=== PATIENT | female | born 1965 | race African-American/Black ===

== ENCOUNTER 2016-09-22 09:34 | Inpatient (IN) | payer BC ==
[~2016-09-22] VITALS: Ht 162.6 cm; Wt 123.0 kg
[~2016-09-22 09:34] MED LIST: LEVAQUIN750 MG PO; PREDNISONE20 MG PO
[2016-09-22 10:24] LABS: BASO % 0.4 % (0.0-2.0); EOS % 0.1 % (0-4.0); GRAN # 5.3 (1.4-6.5); GRAN % 65.8 % (42.2-75.2); HEMATOCRIT 37.4 % (37.0-47.0); HEMOGLOBIN 12.9 g/dl (12.5-16.0); LYMPH # 2.1 (1.2-3.4); LYMPH % 26.2 % (20.0-51.0); MEAN CELL VOLUME 90 fl (80.0-100.0); MEAN CORPUSCULAR HEMOGLOBIN 31 pg (27.0-31.0); MEAN CORPUSCULAR HGB CONC 35 g/dl (33.0-37.0); MEAN PLATELET VOLUME 12.8 fl (7.4-10.4); MONO # 0.6 (0.1-0.6); MONO % 6.9 % (1.7-9.3); PLATELET COUNT 140 K/mm3 (130-400); RED BLOOD COUNT 4.17 M/mm3 (4.10-5.30); REDCELL DISTRIBUTION WIDTH-CV 18.3 % (11.5-14.5); WHITE BLOOD COUNT 8.1 K/mm3 (4.8-10.8)
[2016-09-22 10:44] LABS: ADJUSTED CALCIUM 9.7 mg/dL (8.4-10.2); ALBUMIN 3.2 gm/dL (3.5-5.0); BILIRUBIN,TOTAL 3.8 mg/dL (0.0-1.0); CALCIUM 9.1 mg/dL (8.4-10.2); CREATININE, serum 0.87 mg/dL (0.52-1.25); TOTAL PROTEIN 6.5 gm/dL (6.4-8.2)
[2016-09-22] MEDS ORDERED: PROAIR HFA0.09 MG/AC IH (10:56)
[2016-09-22] MEDS ORDERED: SINGULAIR 110 MG/TAB PO (10:56)
[2016-09-22] MEDS ORDERED: LASIX 20MG TABL20 MG PO (10:57)
[2016-09-22] MEDS ORDERED: ZYRTEC 10MG10 MG PO (10:57)
[2016-09-22] MEDS ORDERED: SPIRIVA RE2.5 MCG/Ac IH (10:58)
[2016-09-22 11:03] LABS: TROPONIN-I 0.037 ng/mL (0.000-0.034)
[2016-09-22 12:43] VITALS: BP 133/82; PULSE 120; TEMP 98.1
[2016-09-22 14:47] VITALS: BP 124/89; PULSE 121; TEMP 97.5
[2016-09-22 15:55] LABS: INR 1.7 (0.8-3.0); PROTHROMBIN TIME 19.5 SECONDS (9.7-12.8)
[2016-09-22 16:03] LABS: MAGNESIUM 1.6 mg/dL (1.6-2.3); PHOSPHOROUS 4.2 mg/dL (2.5-4.5)
[2016-09-22 16:34] LABS: THYROID STIMULATING HORMONE 1.13 uIU/mL (0.465-4.680)
[2016-09-22 19:47] VITALS: BP 119/88; PULSE 112; TEMP 97.7
[2016-09-22 23:50] VITALS: BP 125/88; PULSE 110; TEMP 98.5
[2016-09-23] VITALS (1037 sets, daily range): BP systolic 114–145; BP diastolic 74–102; PULSE 97–123; TEMP 98.3–98.7; O2SAT 87–99
[2016-09-23 06:11] LABS: C-REACTIVE PROTEIN 8.5 mg/dL (0.0-0.9)
[2016-09-23 06:28] LABS: TROPONIN-I 0.043 ng/mL (0.000-0.034)
[2016-09-23 10:14] LABS: ADJUSTED CALCIUM 9.9 mg/dL (8.4-10.2); ALBUMIN 3.2 gm/dL (3.5-5.0); BILIRUBIN,DIRECT 2.1 mg/dL (0.0-0.4); BILIRUBIN,TOTAL 3.6 mg/dL (0.0-1.0); CALCIUM 9.3 mg/dL (8.4-10.2); CREATININE, serum 0.8 mg/dL (0.52-1.25); POTASSIUM 3.2 mmol/L (3.4-5.0); TOTAL PROTEIN 6.5 gm/dL (6.4-8.2)
[2016-09-24] VITALS (744 sets, daily range): BP systolic 110–129; BP diastolic 77–92; PULSE 90–113; TEMP 98–100; O2SAT 83–99
[2016-09-24 06:16] LABS: INR 1.6 (0.8-3.0); PROTHROMBIN TIME 17.5 SECONDS (9.7-12.8)
[2016-09-24 06:46] LABS: ALBUMIN 2.5 gm/dL (3.5-5.0); BILIRUBIN,DIRECT 1.4 mg/dL (0.0-0.4); BILIRUBIN,TOTAL 2.6 mg/dL (0.0-1.0); CALCIUM 8.4 mg/dL (8.4-10.2); CREATININE, serum 0.69 mg/dL (0.52-1.25); POTASSIUM 3.4 mmol/L (3.4-5.0); TOTAL PROTEIN 5.4 gm/dL (6.4-8.2)
[2016-09-24 12:04] LABS: ALBUMIN FRACTION 2.9 g/dL (2.6-4.5); ALBUMIN PERCENTAGE 50.6 % (48.7-61.8); ALPHA 1 FRACTION 0.5 g/dL (0.3-0.5); ALPHA 1 PERCENTAGE 8.7 % (3.4-8.3); ALPHA 2 FRACTION 0.7 g/dL (0.6-1.2); ALPHA 2 PERCENTAGE 11.5 % (8.4-17.5); BETA 1 FRACTION 0.4 g/dL (0.4-0.6); BETA 1 PERCENTAGE 6.8 % (5.4-8.9); BETA 2 FRACTION 0.3 g/dL (0.2-0.5); BETA 2 PERCENTAGE 5.6 % (3.8-7.7); GAMMA PERCENTAGE 16.8 % (8.1-23.0); SERUM PROTEIN TOTAL 5.8 g/dL (6.1-7.7)
[2016-09-25 03:33] VITALS: BP 112/73; PULSE 120; TEMP 99.9
[2016-09-25 07:55] VITALS: BP 130/77; PULSE 103; TEMP 99
[2016-09-25 08:06] LABS: CALCIUM 8.1 mg/dL (8.4-10.2); CREATININE, serum 0.69 mg/dL (0.52-1.25); POTASSIUM 3.8 mmol/L (3.4-5.0)
[2016-09-25 11:16] VITALS: BP 118/74; PULSE 108; TEMP 98
[2016-09-25 14:39] LABS: LUPUS ANTICOAGULANT PTT 31 sec (26 - 36)
[2016-09-25 14:44] LABS: LUPUS ANTICOAGULANT INR 1.6 (()); LUPUS ANTICOAGULANT PT 17.3 sec (())
[2016-09-25 15:29] VITALS: BP 118/80; PULSE 115; TEMP 98.3
[2016-09-25 20:13] VITALS: BP 127/76; PULSE 107; TEMP 98.4
[2016-09-25 23:31] VITALS: BP 130/96; PULSE 97; TEMP 98.9
[2016-09-26] VITALS (18 sets, daily range): BP systolic 121–153; BP diastolic 81–121; PULSE 95–126; TEMP 99.1
[2016-09-26 07:33] LABS: HEMOGLOBIN 12.5 g/dl (12.5-16.0); MEAN CELL VOLUME 90 fl (80.0-100.0); MEAN CORPUSCULAR HEMOGLOBIN 31 pg (27.0-31.0); MEAN CORPUSCULAR HGB CONC 34 g/dl (33.0-37.0); MEAN PLATELET VOLUME 11.8 fl (7.4-10.4); PLATELET COUNT 164 K/mm3 (130-400); RED BLOOD COUNT 4.06 M/mm3 (4.10-5.30); REDCELL DISTRIBUTION WIDTH-CV 17.2 % (11.5-14.5); WHITE BLOOD COUNT 7.1 K/mm3 (4.8-10.8)
[2016-09-26 07:37] LABS: HEMATOCRIT 36.4 % (37.0-47.0)
[2016-09-26 07:49] LABS: INR 1.2 (0.8-3.0); PROTHROMBIN TIME 13.6 SECONDS (9.7-12.8)
[2016-09-26 10:28] LABS: ADJUSTED CALCIUM 9.5 mg/dL (8.4-10.2); ALBUMIN 2.5 gm/dL (3.5-5.0); BILIRUBIN,TOTAL 2.9 mg/dL (0.0-1.0); CALCIUM 8.3 mg/dL (8.4-10.2); CREATININE, serum 0.68 mg/dL (0.52-1.25); POTASSIUM 3.9 mmol/L (3.4-5.0); TOTAL PROTEIN 5.5 gm/dL (6.4-8.2)
[2016-09-26] MEDS ORDERED: INCRUSE EL62.5 MCG/A IH (12:14)
[2016-09-26] MEDS ORDERED: LANOXIN 0.25M0.25 MG PO (12:14)
[2016-09-26] MEDS ORDERED: NITROSTAT0.4 MG/TAB SL (12:14)
[2016-09-26] MEDS ORDERED: CAPOTEN 12.512.5 MG PO (12:14)
[2016-09-26] MEDS ORDERED: ALDACTONE50 MG PO (12:14)
[2016-09-26] MEDS ORDERED: LASIX 40MG TABL40 MG PO (12:30)
[2016-09-28 19:11] LABS: C-ANCA 8 U/mL (0-99); P-ANCA 23 U/mL (0-99)
== END 2016-09-26 18:38 | disposition home or self-care (01) | DRG 287 ==
LOC: COL.ER 09:34 → PEDS 11:21 → IMCU 11:21 → MEDICAL 09-24 14:10
PROVIDERS: Emergency Medicine; Family Medicine; Internal Medicine Interventional Cardiology; Physician Assistant
PROC: 4A023N6 Measurement of Cardiac Sampling and Pressure, Right Heart, Percutaneous Approach (ICD-10-PCS; principal; 2016-09-26)
PROC: B2111ZZ Fluoroscopy of Multiple Coronary Arteries using Low Osmolar Contrast (ICD-10-PCS; 2016-09-26)
PROC: B2151ZZ Fluoroscopy of Left Heart using Low Osmolar Contrast (ICD-10-PCS; 2016-09-26)
DX: I50.21 Acute systolic (congestive) heart failure (principal); I42.0 Dilated cardiomyopathy; E87.1 Hypo-osmolality and hyponatremia; J45.909 Unspecified asthma, uncomplicated; K76.1 Chronic passive congestion of liver; I27.2 Other secondary pulmonary hypertension
CPT/HCPCS: 99223-AI; 99232-AI; 99233-AI; 99239; A4315; C1760; G9654; J1265; J1650; J1940; J2250; J3010; J7060; Q9967

== ENCOUNTER → 2017-11-20 | Outpatient (CLI) | payer BC ==
[~2017-11-20] MED LIST changes: +ALDACTONE50 MG PO; +CAPOTEN 12.512.5 MG PO; +INCRUSE EL62.5 MCG/A IH; +LANOXIN 0.25M0.25 MG PO; +LASIX 20MG TABL20 MG PO; +LASIX 40MG TABL40 MG PO; +NITROSTAT0.4 MG/TAB SL; +PROAIR HFA0.09 MG/AC IH; +SINGULAIR 110 MG/TAB PO; +SPIRIVA RE2.5 MCG/Ac IH; +ZYRTEC 10MG10 MG PO
== END ==
LOC: COL.RAD 07:52
DX: R10.11 Right upper quadrant pain (principal)

== ENCOUNTER → 2017-12-11 | Outpatient (CLI) | payer BC | LOC: COL.RAD 11:35 | DX: R10.11 Right upper quadrant pain (principal) | CPT/HCPCS: A9537 ==

== ENCOUNTER → 2018-09-03 | Outpatient (CLI) | payer BC | LOC: MC.RAD 13:26 | DX: Z12.31 Encounter for screening mammogram for malignant neoplasm of breast (principal); N64.89 Other specified disorders of breast ==

== ENCOUNTER → 2018-09-08 | Outpatient (CLI) | payer BC | LOC: MC.RAD 07:14 | DX: R92.2 Inconclusive mammogram (principal) | CPT/HCPCS: G0279 ==

== ENCOUNTER 2018-10-04 16:28 | Outpatient (CLI) | payer BC ==
[~2018-10-04] VITALS: Ht 165.1 cm; Wt 95.2 kg
[2018-10-04 16:57] VITALS: BP 99/64; PULSE 113; TEMP 98.5
[2018-10-04 17:30] VITALS: BP 102/56; PULSE 97
[2018-10-04 17:45] VITALS: BP 101/55; PULSE 105
[2018-10-04 18:23] LABS: BASO % 0.2 % (0.0-2.0); EOS % 0.2 % (0-4.0); GRAN # 6.7 (1.4-6.5); GRAN % 71.6 % (42.2-75.2); HEMATOCRIT 37.2 % (37.0-47.0); HEMOGLOBIN 12.5 g/dl (12.5-16.0); LYMPH # 1.9 (1.2-3.4); LYMPH % 19.7 % (20.0-51.0); MEAN CELL VOLUME 91 fl (80.0-100.0); MEAN CORPUSCULAR HEMOGLOBIN 31 pg (27.0-31.0); MEAN CORPUSCULAR HGB CONC 34 g/dl (33.0-37.0); MEAN PLATELET VOLUME 11.7 fl (7.4-10.4); MONO # 0.7 (0.1-0.6); MONO % 7.9 % (1.7-9.3); PLATELET COUNT 205 K/mm3 (130-400); RED BLOOD COUNT 4.08 M/mm3 (4.10-5.30); REDCELL DISTRIBUTION WIDTH-CV 12.7 % (11.5-14.5)
[2018-10-04 18:33] LABS: ALBUMIN 4.7 gm/dL (3.5-5.0); BILIRUBIN,TOTAL 0.6 mg/dL (0.0-1.0); CALCIUM 9.7 mg/dL (8.4-10.2); CREATININE, serum 1.26 mg/dL (0.52-1.25); POTASSIUM 4.6 mmol/L (3.4-5.0); TOTAL PROTEIN 8.3 gm/dL (6.4-8.2)
[2018-10-04 20:00] VITALS: BP 102/56; PULSE 99
[2018-10-04] MEDS ORDERED: STIOLTO RESPIMAT4 GM IH (20:04)
[2018-10-04] MEDS ORDERED: ZESTRIL 5MG5 MG PO (20:05)
[2018-10-04] MEDS ORDERED: ZAROXOLYN 2.52.5 MG PO (20:06)
--- NOTE | 2018-10-04 20:10 | NUR ---
Infusion complete. Patient reports feeling better than when she presented at [facility]. Vital signs within normal limits. No concerns at this time.
== END 2018-10-04 20:32 | disposition home or self-care (01) ==
LOC: COL.LAB 16:28 → EUO 16:28
PROVIDERS: Family Medicine
DX: E86.0 Dehydration (principal); Z86.79 Personal history of other diseases of the circulatory system
CPT/HCPCS: J7042

== ENCOUNTER 2019-03-18 21:12 | Emergency (ER) | payer BC ==
[~2019-03-18] VITALS: Ht 162.6 cm; Wt 90.9 kg
[~2019-03-18 21:12] MED LIST changes: +STIOLTO RESPIMAT4 GM IH; +ZAROXOLYN 2.52.5 MG PO; +ZESTRIL 5MG5 MG PO
[2019-03-18 21:22] VITALS: BP 121/86; PULSE 99; TEMP 97.2
[2019-03-18] MEDS ORDERED: NORCO 325 MG-51 TAB PO (23:00)
[2019-03-18] MEDS ORDERED: CLEOCIN HCL300 MG PO (23:00)
== END 2019-03-18 23:31 | disposition home or self-care (01) ==
LOC: COL.ER 21:12
DX: K08.89 Other specified disorders of teeth and supporting structures (principal)

== ENCOUNTER 2019-04-26 14:12 | Inpatient (IN) | payer BC ==
[~2019-04-26] VITALS: Ht 162.6 cm; Wt 93.1 kg
[~2019-04-26 14:12] MED LIST changes: +CLEOCIN HCL300 MG PO; +NORCO 325 MG-51 TAB PO
[2019-04-27] VITALS (11 sets, daily range): BP systolic 96–109; BP diastolic 45–69; PULSE 54–65; TEMP 97.8–98.1
[2019-04-27] MEDS ORDERED: TOPROL XL 25MG25 MG PO (10:05)
--- NOTE | 2019-04-27 15:06 | NUR ---
SW attempted to meet with the patient, patient was in surgery. SW will attempt at a later time.
--- NOTE | 2019-04-27 15:15 | NUR ---
social media community manager in to visit with chiquita
--- NOTE | 2019-04-27 15:30 | NUR ---
full assessment completed, see interventions for further info
--- NOTE | 2019-04-27 15:45 | NUR ---
is now c/o pain to left knee, medicated with roxicodone 5mg po,
--- NOTE | 2019-04-27 16:30 | NUR ---
visiting with family, instructed on ordering something to eat and verbalizes understanding
--- NOTE | 2019-04-27 16:55 | NUR ---
sitting up in bed eating and watching video on phone of a knee replacement
--- NOTE | 2019-04-27 17:00 | NUR ---
nurse was called to room and patient resting with eyes closed, no grimacing or moaning, states pain is 10/10, medicated with second tablet of roxicodone 5mg
--- NOTE | 2019-04-27 17:42 | NUR ---
is resting quietly with eyes closed when entered the room, after she arouses she has some moaning and moving around in bed
--- NOTE | 2019-04-27 18:30 | NUR ---
continues to c/o pain, medicated with morphine 2mg slow IV
--- NOTE | 2019-04-27 18:45 | NUR ---
bedside shift report given to MARIA FERNANDA Flores
[2019-04-28] VITALS (7 sets, daily range): BP systolic 90–114; BP diastolic 47–73; PULSE 60–76; TEMP 97.5–98.3
--- NOTE | 2019-04-28 02:52 | NUR ---
PATIENT HAS HAD A ROUGH NIGHT. AT SHIFT CHANGE PATIENT STATED SHE NEEDED TO USE THE RESTROOM. WAS AMBULATED TO RESTROOM WITH X2 ASSIST WITH DIFFICULTY. PATIENT STARTED TO HAVE SEVERE PAIN AND WAS IN TEARS. GIVEN PO NORCO AND IV MORPHINE. STATED SHE WAS HAVING SOME NAUSEA, IV ZOFRAN GIVEN. PAIN IS CONTROLLED WITH ALTERNATING MORPHINE AND NORCO THROUGHOUT NIGHT. PATIENT HAS HAD SOME SNACKS AND CRANBERRY JUICE. TOLERATING PO. BULKY DRESSING AND VINEET WRAP TO L KNEE ARE CD&I. WILL CONTINUE TO MONITOR. NO FURTHER NEEDS AT THIS TIME.
--- NOTE | 2019-04-28 04:18 | NUR ---
Sitting up in bed. Requests Zofran for nausea. Administered Zofran as ordered. Patient denies further needs at this time.
--- NOTE | 2019-04-28 09:36 | NUR ---
(04/27) KYLER met with the patient and the patient's family to discuss a discharge plan. The patient lives in [place] with her Dolores. The patient has a walker and a cane and reports independence with ADLs. The patient's PCP is Dr. Hall and receives medications from [facility] in with no difficulties. The patient does not have advanced directives in the EMR and was not interested in obtaining a DPOA-HC form. The patient plans to return home with outpatient physical therapy at [facility] in . The family will provide transportation. There are no additional needs at this time.
--- NOTE | 2019-04-28 10:02 | NUR ---
Initial visit; Patient thanked Drive Tester for looking in on her and keeping her in Drive Tester's prayers.
--- NOTE | 2019-04-29 01:59 | NUR ---
Patient has been resting well this shift. Pain controlled this shift with current regimen. Transfers with stand-by assist. Some drainage noted to jake. at bedside. Denies any further needs.
[2019-04-29 04:00] VITALS: BP 89/51; BP 90/51; PULSE 93; TEMP 98.2
[2019-04-29] MEDS ORDERED: XARELTO10 MG PO (06:33)
[2019-04-29] MEDS ORDERED: NORCO 325 MG-7.1 TAB PO (06:34)
[2019-04-29] MEDS ORDERED: ROXICODONE 55 MG/TAB PO (06:36)
[2019-04-29 07:50] VITALS: BP 98/48; PULSE 95; TEMP 99.2
--- NOTE | 2019-04-29 07:50 | NUR ---
resting in bed and has ordered breakfast, states pain to left knee was relieved by pain med, full assessment completed, see interventions for further info, Dr Thayer was in to see patient
--- NOTE | 2019-04-29 09:05 | NUR ---
ambulated out to [place] with physical therapy for group exercises
--- NOTE | 2019-04-29 09:44 | NUR ---
ambulated back to room after therapy
--- NOTE | 2019-04-29 10:10 | NUR ---
c/o pain 03/05 after therapy, medicated with roxicodone 10mg po
--- NOTE | 2019-04-29 10:57 | NUR ---
occupational therapy in and assisted her with taking a shower, aquacel dressing with mod amoutn drainage, removed and new aquacel placed
--- NOTE | 2019-04-29 12:20 | NUR ---
up and about in room independently,
--- NOTE | 2019-04-29 12:56 | NUR ---
ambulated out to [place] with physical therapy for group exercises
[2019-04-29 13:18] VITALS: BP 106/53; PULSE 105; TEMP 99.2
--- NOTE | 2019-04-29 14:00 | NUR ---
discharge instructions given to patient and her , verbalizes understanding
--- NOTE | 2019-04-29 14:10 | NUR ---
discharged per WC
== END 2019-04-29 14:10 | disposition home or self-care (01) | DRG 470 ==
LOC: SURG 04-27 08:04 → JCC 04-27 12:45 → SURG 04-29 14:10
PROVIDERS: ADMIT Orthopaedic Surgery
PROC: 0SRD0J9 Replacement of Left Knee Joint with Synthetic Substitute, Cemented, Open Approach (ICD-10-PCS; principal; 2019-04-27 12:45)
DX: M17.12 Unilateral primary osteoarthritis, left knee (principal); I42.9 Cardiomyopathy, unspecified; I50.22 Chronic systolic (congestive) heart failure; J45.909 Unspecified asthma, uncomplicated; I11.0 Hypertensive heart disease with heart failure; I07.1 Rheumatic tricuspid insufficiency; E11.9 Type 2 diabetes mellitus without complications; E78.00 Pure hypercholesterolemia, unspecified; Z79.84 Long term (current) use of oral hypoglycemic drugs; Z79.01 Long term (current) use of anticoagulants; Z88.0 Allergy status to penicillin; Z88.6 Allergy status to analgesic agent; Z88.1 Allergy status to other antibiotic agents
CPT/HCPCS: A9284; C1776; J1100; J2250; J2270; J2405; J2704; J2795; J7030; J7050; J7120

== ENCOUNTER → 2019-12-06 | Outpatient (CLI) | payer BC ==
[~2019-12-06] MED LIST changes: +NORCO 325 MG-7.1 TAB PO; +ROXICODONE 55 MG/TAB PO; +TOPROL XL 25MG25 MG PO; +XARELTO10 MG PO
== END ==
LOC: MC.RAD 10-25 09:15
DX: Z12.31 Encounter for screening mammogram for malignant neoplasm of breast (principal)

== ENCOUNTER → 2021-01-01 | Outpatient (CLI) | payer BC | LOC: MC.RAD 08:41 | DX: Z12.31 Encounter for screening mammogram for malignant neoplasm of breast (principal) ==

== ENCOUNTER → 2023-10-06 | Outpatient (CLI) | payer BC ==
[~2023-10-06] MED LIST changes: +ALDACTONE 25MG25 M1 PO; +FARXIGA10 PO; +LIPITOR20 MG PO; +OZEMPIC1 MG/0.71 SQ; +ULTRAM 50MG TAB50 MG PO; +VERQUVO10 MG PO; +ZYLOPRIM 100MG100 MG PO
== END ==
LOC: MC.RAD 13:40
DX: Z12.31 Encounter for screening mammogram for malignant neoplasm of breast (principal)

== ENCOUNTER 2024-04-05 11:54 | Inpatient (IN) | payer BC ==
[~2024-04-05] VITALS: Ht 162.6 cm; Wt 110.9 kg
[~2024-04-05 11:54] MED LIST changes: +LIPITOR 40MG TA40 MG PO; -LIPITOR20 MG PO; -OZEMPIC1 MG/0.71 SQ; +OZEMPIC2 MG/0.75 SQ; -VERQUVO10 MG PO; +VERQUVO2.5 MG PO
[2024-06-15] MEDS ORDERED: LR 1,000 ML IV SCH (11:00)
[2024-06-17] VITALS (13 sets, daily range): BP systolic 96–133; BP diastolic 58–84; PULSE 63–84; TEMP 97.5–98.6
--- NOTE | 2024-06-17 06:10 | NUR ---
The patient ambulated back to [place] [facility] independetly using a steady gait and appeared to tolerate the activity well. Vital signs obtained. Consent signed. 20G IV started in left hand with one stick, LR Infusing without difficulty. wavier signed. Assessment completed. Home medications reconcilled. PreOp scrub completed to right knee as ordered. Warm blankets provided. The patient's son brought her and will come pick her up for discharge. The patient denies any further needs at this time.
[2024-06-17] MEDS ORDERED: LASIX 40MG TABL40 MG PO (06:38)
[2024-06-17] MEDS ORDERED: Naloxone 0.4 MG/ML VIAL IV PRN (07:00)
[2024-06-17] MEDS ORDERED: oxyCODONE 5 MG TAB PO PRN ×2 (07:00)
[2024-06-17] MEDS ORDERED: D5 1/2 NS 1,000 ML IV SCH (07:00)
[2024-06-17] MEDS ORDERED: HYDROmorphone 0.5 MG/0.5 ML SYRINGE IV PRN (07:00)
[2024-06-17] MEDS ORDERED: Ondansetron 4 MG TAB PO PRN (07:00)
[2024-06-17] MEDS ORDERED: Magnes Hydrox (MOM) 80 MG/ML 30 ML CUP PO PRN (07:00)
--- NOTE | 2024-06-17 07:15 | NUR ---
The patient ambulated back to [place] [address] independently using a steady gait and appeared to tolerate the activity well. Vital signs obtained. Consent signed. 18G IV started in left hand with one stick, LR infusing without difficulty. PreOp scrub completed to right knee as ordered. Thigh high MELITA hose placed to left lower extremity and extra hose secured to the cart to be placed post op. Assessment completed. Home medications reconcilled. Warm blankets provided. The patient's family was brought back to be at her bedside. The patient denies any further needs at this time.
[2024-06-17] MEDS ORDERED: fentaNYL 50 MCG/ML 2 ML VIAL ONE (07:16)
[2024-06-17] MEDS ORDERED: Midazolam 2 MG/2 ML VIAL ONE (07:16)
[2024-06-17] MEDS ORDERED: Ondansetron 4 MG/2 ML VIAL ONE (07:17)
[2024-06-17] MEDS ORDERED: dexAMETHasone 10 MG/ML VIAL ONE (07:17)
[2024-06-17] MEDS ORDERED: NS 10 ML IV ONE (07:17)
[2024-06-17] MEDS ORDERED: Topical Skin Adhesive 1 EACH (1 ML) TOP ONE ×2 (07:28→09:21)
[2024-06-17] MEDS ORDERED: Acetaminophen 500 MG TAB PO SCH (07:57)
[2024-06-17] MEDS ORDERED: fentaNYL 50 MCG/ML 1 ML SYRINGE/VIAL [PACU/SDC ONLY] IV PRN ×2 (08:30)
[2024-06-17] MEDS ORDERED: Ondansetron 4 MG/2 ML VIAL IV PRN (08:30)
[2024-06-17] MEDS ORDERED: hydrALAZINE 20 MG/ML 1 ML VIAL IV PRN (08:30)
[2024-06-17] MEDS ORDERED: Meperidine 50 MG/ML 1 ML VIAL IV PRN (08:30)
[2024-06-17] MEDS ORDERED: HYDROmorphone 1 MG/1 ML SYRINGE [PACU/SDC ONLY] IV PRN (08:30)
[2024-06-17] MEDS ORDERED: droPERidol 2.5 MG/ML 2 ML VIAL IV PRN (08:30)
--- NOTE | 2024-06-17 08:53 | NUR ---
The patient was taken back to the operating room via cart by MARIA FERNANDA Olguin. The patient's chart was sent with her. The patient's family took her belongings with them.
[2024-06-17] MEDS ORDERED: Spironolactone 25 MG TAB PO SCH (09:00)
[2024-06-17] MEDS ORDERED: Furosemide 40 MG TAB PO SCH (09:00)
[2024-06-17] MEDS ORDERED: Tranexamic Acid 1,000 MG/10 ML VIAL ONE (09:09)
[2024-06-17] MEDS ORDERED: Insulin Lispro (HumaLOG) SQ SCH (12:00)
--- NOTE | 2024-06-17 13:13 | NUR ---
PATIENT ARRIVED TO FLOOR FORM PACU AT 1125. VSS. VINEET WRAP AND KNEE MOBILIZER TO RIGHT KNEE. PATIENT STILL HAS SPINAL IN EFFECT, REPORTING NO PIAN AT THIS TIME. ALL MEDS GIVEN ORDERED. CALL LIGHT IN REACH AND FAMILY AT BEDSIDE
[2024-06-17] MEDS ORDERED: ceFAZolin 2 G in Water For Injection,Sterile 20 ML IV SCH (14:00)
--- NOTE | 2024-06-17 14:08 | NUR ---
SW met with patient and Sair Saez ([phone]) to complete initial assessment for discharge planning. Patient verified that they live in [place]. Patient sees Dr. Mary Hall as her PCP and uses [facility] pharmacy in [place] without difficulty. Patient denies having DPOA assigned and states that her will make decisions for her. Patient states that she has cane, walker, shower chair and nebulizer for DME at home. Patient reports to have appointment for OP therapy at [facility] in [place] on 06/29. Patient is covered by [employer] insurance. Plan is to return home with and OP therapy. Discharge plan: Home with family and OP therapy
[2024-06-17] MEDS ORDERED: Patient's Own Medication Item PO SCH (17:00)
[2024-06-17] MEDS ORDERED: Sennosides/Docusate 8.6-50 MG TAB PO SCH (21:00)
[2024-06-17] MEDS ORDERED: Atorvastatin 40 MG TAB PO SCH (21:00)
[2024-06-18] VITALS: BP_SYST 121
[2024-06-18 00:08] VITALS: BP 121/75; PULSE 73; TEMP 98.6
[2024-06-18 03:32] VITALS: BP 132/85; PULSE 70; TEMP 98.5
[2024-06-18 04:20] VITALS: BP_SYST 132
[2024-06-18 05:47] LABS: HEMATOCRIT 37.3 % (37.0-47.0); HEMOGLOBIN 12.5 g/dl (12.5-16.0)
--- NOTE | 2024-06-18 06:43 | NUR ---
PT HAS BEEN UP AND AMBULATING IN ROOM WITH ASSIST OF 1 WITH GB AND WALKER, RT KNEE DSG CDI, ICE PACK IN PLACE. X1 IV DOSE OF DILAUDID AT HS OTHERWISE, PAIN CONTROLLED WITH PO PAIN MEDS. PT REFUSING ACCU CHECKS AND INSULIN, STATES SHE IS NOT A DIABETIC. DAUGHTER IN ROOM
[2024-06-18] MEDS ORDERED: Dextrose (Glucose) 15 GM (4 x 3.75 GM) Chewable TABLET PACK PO PRN (07:15)
[2024-06-18] MEDS ORDERED: Glucagon 1 MG VIAL IM PRN (07:15)
[2024-06-18] MEDS ORDERED: Dextrose 50% Water 25 GM/50 ML SYRINGE IV PRN (07:15)
--- NOTE | 2024-06-18 07:34 | NUR ---
SHIFT ASSESSMENT COMPLETE. VSS. PATIENT RESTING IN BED, AWAKE. ALL MORNING MEDS GIVEN ORDERED. PATIENT HAS BEEN GETTING UP WALKING FEQUENTLY. PATIENT STATES PAIN 5/10. PAIN MEDS GIVEN ORDERED. PATIENT STATES NO NEEDS AT THIS TIME.
[2024-06-18 07:57] VITALS: BP 121/82; PULSE 73; TEMP 98.1
[2024-06-18 08:41] VITALS: BP_SYST 121
[2024-06-18] MEDS ORDERED: OLODATEROL IH SCH (09:00)
[2024-06-18] MEDS ORDERED: Umeclidinium/Vilanterol 62.5-25 MCG INHALATION/INHALER IH SCH (09:00)
[2024-06-18] MEDS ORDERED: VILANTEROL IH SCH (09:00)
[2024-06-18] MEDS ORDERED: [UNRECOGNIZED DRUG - OTHER] IH SCH (09:00)
[2024-06-18] MEDS ORDERED: TIOTROPIUM IH SCH (09:00)
--- NOTE | 2024-06-18 09:46 | NUR ---
DISCHARGE ORDERS PLACED AND DISCHARGE COMPLETE. ALL QUESTIONS ANSWERED. PER PATIENT HAS ALL MEDICATIONS NEEDED AT HOME AND UNDERSTANDS OFFICE WILL CALL HER THURSDAY TO SCHEDULE FOLLOW UP APPOINTMENT.
--- NOTE | 2024-06-18 13:29 | NUR ---
Data: Judson declined spiritual care visit offere during [facility] rounds because she was going to discharge soon. Assessment: None at this time. Plan of Care: Patient has discharged.
--- NOTE | 2024-06-18 16:30 | NUR ---
Updates sent to Baez up on discharge.
== END 2024-06-18 09:45 | disposition home or self-care (01) | DRG 470 ==
LOC: INPTSU 06-17 05:54 → SURG 06-17 05:54
PROVIDERS: ADMIT Orthopaedic Surgery
PROC: 0SRC0J9 Replacement of Right Knee Joint with Synthetic Substitute, Cemented, Open Approach (ICD-10-PCS; principal; 2024-06-17 09:50)
DX: M17.11 Unilateral primary osteoarthritis, right knee (principal); I50.9 Heart failure, unspecified; E11.9 Type 2 diabetes mellitus without complications; Z79.4 Long term (current) use of insulin
CPT/HCPCS: A6197; A9284; C1713; C1776; J0665; J0688; J0690; J1100; J1171; J1815; J2250; J2405; J2704; J3010; J7120; L1830